=== PATIENT | female | born 1975 | race Caucasian/White ===

== ENCOUNTER 2016-05-20 10:57 | Emergency (ER) | payer OTHER ==
[~2016-05-20] VITALS: Ht 167.6 cm; Wt 64.3 kg
[~2016-05-20 10:57] MED LIST: Amoxicillin PO; CLARITIN10 M4 PO; ENDOCET 5-3251 EACH PO; FLONASE16 G1 BOTH NARES; Flintstones PO; Motrin PO; NAPROSYN500 MG PO; Zantac PO
[2016-05-20 14:16] VITALS: BP 135/87
== END 2016-05-20 14:16 | disposition home or self-care (01) ==
LOC: EME 10:57
DX: S00.12XA Contusion of left eyelid and periocular area, initial encounter (principal); H11.32 Conjunctival hemorrhage, left eye; S01.112A Laceration without foreign body of left eyelid and periocular area, initial encounter; Y09 Assault by unspecified means; F17.200 Nicotine dependence, unspecified, uncomplicated; Z71.6 Tobacco abuse counseling
CPT/HCPCS: 70150; 99281; 99283

== ENCOUNTER 2016-10-20 19:09 | Emergency (ER) | payer SELFPAY ==
[~2016-10-20] VITALS: Ht 167.6 cm; Wt 58.8 kg
[2016-10-20 20:39] LABS: HEMATOCRIT 37.2 % (36.0-46.0); MCH 24.4 PG (29.0-34.0); MCHC 31.7 G/DL (30.0-36.0); MCV 76.9 FL (83-99); MEAN PLAT.VOLUME 10.6 uM^3 (9.5-12.4); PLATELET COUNT 384 K/uL (156-360); RBC DIS.WIDTH-CV 16.4 % (11.8-14.6); RED BLOOD COUNT 4.84 M/uL (3.80-5.20); WHITE BLOOD COUNT 16.3 K/uL (4.1-10.2)
[2016-10-20 20:48] LABS: CHLORIDE 104 mEq/L (99-109); POTASSIUM 3.8 mEq/L (3.7-5.4); SODIUM 138 mEq/L (136-147)
[2016-10-20 20:50] LABS: GLUCOSE 138 mg/dL (70-99)
[2016-10-20 20:51] LABS: ANION GAP 10 MEQ/L (2-14)
[2016-10-20 20:52] LABS: TOTAL BILIRUBIN 0.3 mg/dL (0.0-1.0)
[2016-10-20 20:53] LABS: ALKALINE PHOSPHATASE 74 IU/L (3-129)
[2016-10-20 20:54] LABS: GFR ESTIMATE (CALCULATED) > 59 mL/min/
[2016-10-20 20:55] LABS: UREA NITROGEN (BUN) 8 mg/dL (9-23)
[2016-10-20 20:57] LABS: LIPASE 31 U/L (1.0-51.0)
[2016-10-20 21:03] LABS: QUANTITATIVE HCG < 4.0 MIU/ML
[2016-10-20 22:27] LABS: ADD MIUA? YES; BILIRUBIN NEGATIVE; BLOOD NEGATIVE; COLOR YELLOW ((YELLOW)); GLUCOSE (STRIP) NEGATIVE; KETONES NEGATIVE; LEUKOCYTES NEGATIVE; NITRITE NEGATIVE; PROTEIN (STRIP) NEGATIVE; SPECIFIC GRAVITY 1.029 (1.000-1.030); UROBILINOGEN 0.2 MG/DL (0.2-1.0)
[2016-10-20 22:32] LABS: BACTERIA RARE /HPF; EPITHELIAL CELLS 1+ /HPF; MUCUS TRACE /LPF; RED BLOOD CELLS 0-5 /HPF (0-5); UCUL ADDED? NO; WHITE BLOOD CELLS 0-5 /HPF (0-5)
[2016-10-20] MEDS ORDERED: ZOFRAN4 MG PO (23:09)
[2016-10-20] MEDS ORDERED: PERCOCET 5/31 TABLET PO (23:09)
[2016-10-20] MEDS ORDERED: CARAFATE1 GM PO (23:10)
[2016-10-20 23:35] VITALS: BP 130/81
== END 2016-10-20 23:36 | disposition home or self-care (01) ==
LOC: EME 19:09
DX: K29.01 Acute gastritis with bleeding (principal)
CPT/HCPCS: 74177; 80053; 81003; 83690; 84702; 85027; 99281; 99284; J2270; J2405; J2765; J3010; J7030

== ENCOUNTER 2016-12-22 11:00 | Emergency (ER) | payer SELFPAY ==
[~2016-12-22] VITALS: Ht 167.6 cm; Wt 58.1 kg
[~2016-12-22 11:00] MED LIST changes: +CARAFATE1 GM PO; +PERCOCET 5/31 TABLET PO; +ZOFRAN4 MG PO
[2016-12-22 11:28] LABS: HEMATOCRIT 33.6 % (36.0-46.0); MCH 24.1 PG (29.0-34.0); MCHC 31.5 G/DL (30.0-36.0); MCV 76.4 FL (83-99); MEAN PLAT.VOLUME 10.4 uM^3 (9.5-12.4); PLATELET COUNT 386 K/uL (156-360); RBC DIS.WIDTH-CV 17.6 % (11.8-14.6); RBC DIS.WIDTH-SD 48.7 % (39-53); WHITE BLOOD COUNT 19.4 K/uL (4.1-10.2)
[2016-12-22 11:39] LABS: CHLORIDE 101 mEq/L (99-109); POTASSIUM 3.5 mEq/L (3.7-5.4); SODIUM 135 mEq/L (136-147)
[2016-12-22 11:42] LABS: GLUCOSE 154 mg/dL (70-99)
[2016-12-22 11:43] LABS: ANION GAP 13 MEQ/L (2-14)
[2016-12-22 11:44] LABS: TOTAL BILIRUBIN 0.5 mg/dL (0.0-1.0)
[2016-12-22 11:45] LABS: ALKALINE PHOSPHATASE 82 IU/L (3-129); GFR ESTIMATE (CALCULATED) > 59 mL/min/
[2016-12-22 11:46] LABS: UREA NITROGEN (BUN) 12 mg/dL (9-23)
[2016-12-22 11:54] LABS: QUANTITATIVE HCG < 4.0 MIU/ML
[2016-12-22 12:13] LABS: ADD MIUA? YES; BILIRUBIN NEGATIVE; BLOOD MODERATE; COLOR YELLOW ((YELLOW)); GLUCOSE (STRIP) NEGATIVE; KETONES NEGATIVE; LEUKOCYTES MODERATE; NITRITE POSITIVE; PROTEIN (STRIP) 100; SPECIFIC GRAVITY 1.016 (1.000-1.030)
[2016-12-22 12:18] LABS: BACTERIA 3+ /HPF; EPITHELIAL CELLS 1+ /HPF; MUCUS TRACE /LPF; UCUL ADDED? YES; WHITE BLOOD CELLS 30-40 /HPF (0-5)
[2016-12-22] MEDS ORDERED: LEVAQUIN500 MG PO (14:22)
[2016-12-22] MEDS ORDERED: TYLENOL WITH C1 EACH PO (14:22)
[2016-12-22 14:41] VITALS: BP 105/69
== END 2016-12-22 14:44 | disposition home or self-care (01) ==
LOC: EME 11:00
DX: N12 Tubulo-interstitial nephritis, not specified as acute or chronic (principal); R19.7 Diarrhea, unspecified; R00.0 Tachycardia, unspecified; Z98.51 Tubal ligation status; F17.200 Nicotine dependence, unspecified, uncomplicated
CPT/HCPCS: 74176; 80053; 81003; 84702; 85027; 87077; 87086; 87186; 99281; 99285; J0696; J1885; J2405; J7030; J7050